=== PATIENT | male | born 1955 | race Hispanic/Latino ===

== ENCOUNTER → 2020-02-09 | Outpatient (CLI) | payer MEDICARE ==
[~2020-02-09] MED LIST: CIALIS20 MG PO; COMBIVENT RESPIM4 GM; FUROSEMIDE40 MG PO; GLYBURIDE5 MG PO; LANTUS100 UNITS/ SC; LISINOPRIL10 MG PO; METFORMIN HCL1000 MG PO; NAPROXEN500 MG PO; NIFEDICAL XL30 MG PO; POTASSIUM CHLO20 ME1 PO; PULMICORT; TAMSULOSIN HCL0.4 MG PO; ZOCOR20 MG PO
--- NOTE | 2020-02-09 11:34 | Diagnostic Imaging Report ---
EXAM: US LIVER DATE: 02/09/2020 9:24 AM INDICATION: Abnormalities COMPARISON: None FINDINGS: The visualized pancreas appears unremarkable. The liver is at the upper limits of normal for size measuring 17.8 cm in length. Hepatic echogenicity is diffusely increased suggesting fatty infiltration. No focal hepatic abnormality is identified. The main portal vein is patent with antegrade flow and diameter of 1.1 cm, within normal limits. The gallbladder is unremarkable. There is no evidence for cholelithiasis, gallbladder wall thickening, or pericholecystic fluid. There is no intra or extrahepatic biliary ductal dilatation. The common bile duct measures 4 mm. Sonographic Welch's sign is negative. The right kidney is normal in size measuring 12.4 x 5.9 x 5.5 cm with normal cortical thickness/echogenicity. There is no evidence for solid renal mass, hydronephrosis, or shadowing calculi within the right kidney. The visualized portions the IVC and aorta are within normal limits. There is no ascites visualized within the right upper quadrant. IMPRESSION: Sonographic findings suggestive of hepatic steatosis. Otherwise, unremarkable right upper quadrant ultrasound examination. Signed by: Dr. Steven Lowe MD on 02/09/2020 11:30 AM
== END ==
LOC: US 08:50
PROVIDERS: ATTEND Internal Medicine Interventional Cardiology
DX: R94.5 Abnormal results of liver function studies (principal)
CPT/HCPCS: 76705